=== PATIENT | female | born 1965 | race Caucasian/White ===

== ENCOUNTER → 2017-02-12 | Outpatient (CLI) | payer MEDICAID, OTHER ==
[~2017-02-12] MED LIST: NO HOME MEDS
== END | disposition home or self-care (01) ==
LOC: CFH 10:44
PROVIDERS: ATTEND Nurse Practitioner Family
DX: C50.412 Malignant neoplasm of upper-outer quadrant of left female breast (principal); K76.0 Fatty (change of) liver, not elsewhere classified
CPT/HCPCS: 76700

== ENCOUNTER → 2017-02-22 | Outpatient (CLI) | payer OTHER, MEDICAID ==
[~2017-02-22] MED LIST changes: +OMNIPAQUE 350 MG/ML, 100ML BOTTLE ONE
== END | disposition home or self-care (01) ==
LOC: RAD 10:41
PROVIDERS: ATTEND Internal Medicine Hematology & Oncology
DX: C50.412 Malignant neoplasm of upper-outer quadrant of left female breast (principal)
CPT/HCPCS: 71260; J1642; Q9967

== ENCOUNTER → 2017-03-08 | Outpatient (CLI) | payer OTHER, MEDICAID ==
[~2017-03-08] MED LIST changes: +GADOBUTROL 10 MMOL/10 ML VIAL ONE; -OMNIPAQUE 350 MG/ML, 100ML BOTTLE ONE
== END | disposition home or self-care (01) ==
LOC: CFH 11:01
PROVIDERS: ATTEND Surgery
DX: C50.412 Malignant neoplasm of upper-outer quadrant of left female breast (principal); C77.3 Secondary and unspecified malignant neoplasm of axilla and upper limb lymph nodes; R59.1 Generalized enlarged lymph nodes; Z92.21 Personal history of antineoplastic chemotherapy
CPT/HCPCS: 76641; A9585; C8908

== ENCOUNTER → 2017-03-20 | Outpatient (CLI) | payer OTHER, MEDICAID ==
[~2017-03-20] MED LIST changes: -GADOBUTROL 10 MMOL/10 ML VIAL ONE
== END | disposition home or self-care (01) ==
LOC: CFH 10:28
PROVIDERS: ATTEND Family Medicine
DX: J20.9 Acute bronchitis, unspecified (principal)
CPT/HCPCS: 71020

== ENCOUNTER → 2017-05-06 | Outpatient (CLI) | payer OTHER, MEDICAID ==
[~2017-05-06] MED LIST changes: +IBUP-1 PO
== END | disposition home or self-care (01) ==
LOC: ROC 08:14
PROVIDERS: ATTEND Radiology Radiation Oncology
DX: C50.912 Malignant neoplasm of unspecified site of left female breast (principal)
CPT/HCPCS: 99212; G0463

== ENCOUNTER → 2017-07-16 | Outpatient (CLI) | payer OTHER, MEDICAID ==
[~2017-07-16] MED LIST changes: -IBUP-1 PO; +IBUP-11 PO; +OMNIPAQUE 350 MG/ML, 100ML BOTTLE ONE
== END | disposition home or self-care (01) ==
LOC: CFH 10:17
PROVIDERS: ATTEND Internal Medicine Hematology & Oncology
DX: C50.412 Malignant neoplasm of upper-outer quadrant of left female breast (principal); Z98.890 Other specified postprocedural states
CPT/HCPCS: 71260; 74177; Q9967

== ENCOUNTER → 2017-07-22 | Outpatient (CLI) | payer OTHER, MEDICAID ==
[~2017-07-22] MED LIST changes: -OMNIPAQUE 350 MG/ML, 100ML BOTTLE ONE
== END | disposition home or self-care (01) ==
LOC: ROC 09:39
PROVIDERS: ATTEND Radiology Radiation Oncology
DX: C50.919 Malignant neoplasm of unspecified site of unspecified female breast (principal)
CPT/HCPCS: 99213; G0463

== ENCOUNTER → 2017-08-26 | Outpatient (CLI) | payer MEDICAID, OTHER | END | disposition home or self-care (01) | LOC: ROC 15:17 | PROVIDERS: ATTEND Radiology Radiation Oncology | DX: C50.411 Malignant neoplasm of upper-outer quadrant of right female breast (principal) | CPT/HCPCS: 99213; G0463 ==

== ENCOUNTER → 2017-10-14 | Outpatient (CLI) | payer OTHER, MEDICAID | END | disposition home or self-care (01) | LOC: CFH 14:16 | PROVIDERS: ATTEND Radiology Radiation Oncology | DX: Z12.31 Encounter for screening mammogram for malignant neoplasm of breast (principal); C50.412 Malignant neoplasm of upper-outer quadrant of left female breast; Z78.0 Asymptomatic menopausal state; Z85.3 Personal history of malignant neoplasm of breast | CPT/HCPCS: G0202 ==

== ENCOUNTER 2017-11-20 09:07 | Observation (INO) | payer BC, MEDICAID ==
[~2017-11-20] VITALS: Ht 157.5 cm; Wt 73.1 kg
[2017-11-20] MEDS ORDERED: AMPICILLIN/SULBACTAM 3 GM in SODIUM CHLORIDE 0.9% 100 ML IV ONE ×2 (10:00→18:00)
[2017-11-20] MEDS ORDERED: morphine SULFATE 10 MG/ML, 1ML IVPush ONE (10:00)
[2017-11-20] MEDS ORDERED: MORPHINE SULFATE 4 MG/ML, 1ML ONE (10:12)
[2017-11-20 10:22] LABS: BASOPHILS # (AUTO) 0.03 x10^3/uL (0-0.1); BASOPHILS % (AUTO) 1 % (0-1); EOSINOPHILS # (AUTO) 0.11 x10^3/uL (0-0.4); EOSINOPHILS % (AUTO) 2 % (1-7); LYMPHOCYTES # (AUTO) 1.26 x10^3/uL (1-3.4); LYMPHOCYTES % (AUTO) 22 % (22-44); MD NO; MEAN CORPUSCULAR HEMOGLOBIN 29.6 pg (27.0-34.8); MEAN CORPUSCULAR HGB CONC 32.8 g/dL (32.4-35.8); MEAN CORPUSCULAR VOLUME 90.3 fL (80-100); MEAN PLATELET VOLUME 7.1 fL (7.4-10.4); MONOCYTES # (AUTO) 0.38 x10^3/uL (0.2-0.8); MONOCYTES % (AUTO) 6 % (2-9); NEUTROPHILS # (AUTO) 4.08 x10^3/uL (1.8-6.8); NEUTROPHILS % (AUTO) 70 % (42-75); PLATELET COUNT 464 x10^3/uL (130-400); RED BLOOD COUNT 4.09 x10^6/uL (3.82-5.3); RED CELL DISTRIBUTION WIDTH 14.9 % (9.6-15.2)
[2017-11-20 10:32] LABS: ANION GAP 7 mmol/L (5-15); CALCIUM 8.5 mg/dL (8.5-10.1); CHLORIDE 103 mmol/L (98-107); CREATININE 0.66 mg/dL (0.55-1.02)
[2017-11-20] MEDS ORDERED: HYDROmorphone 2 MG/ML, 1ML ONE ×2 (12:28→18:50)
[2017-11-20] MEDS ORDERED: HYDROmorphone 1 MG/ML, 1ML IV ONE (12:30)
[2017-11-20] MEDS ORDERED: D5%-0.45NACL+KCL 20MEQ 1,000 ML IV ONE (13:22)
[2017-11-20] MEDS ORDERED: ONDANSETRON 2MG/ML, 2ML IVPush PRN ×3 (13:30→18:00)
[2017-11-20] MEDS ORDERED: HYDROmorphone 1 MG/ML, 1ML IVPush PRN (13:30)
[2017-11-20 15:03] VITALS: BP 98/62
[2017-11-20] MEDS ORDERED: HYDROmorphone 2 MG/ML, 1ML IVPush PRN ×3 (16:00→20:00)
[2017-11-20] MEDS ORDERED: D5%-0.45NACL+KCL 20MEQ 1,000 ML IV SCH (16:30)
[2017-11-20] MEDS ORDERED: FENTANYL PF 100 MCG/2ML ONE ×2 (17:24→18:24)
[2017-11-20] MEDS ORDERED: MIDAZOLAM 1 MG/ML, 2ML ONE (17:24)
[2017-11-20] MEDS ORDERED: BACITRACIN 50,000 UNIT ONE (17:32)
[2017-11-20] MEDS ORDERED: DEXAMETHASONE 4 MG/ML, 1ML ONE (17:33)
[2017-11-20] MEDS ORDERED: CEFAZOLIN 1,000 MG ONE (17:33)
[2017-11-20] MEDS ORDERED: ONDANSETRON 2MG/ML, 2ML ONE (17:33)
[2017-11-20] MEDS ORDERED: PROPOFOL 10 MG/ML, 20ML ONE (17:33)
[2017-11-20] MEDS ORDERED: KETOROLAC 30 MG/1 ML ONE (17:34)
[2017-11-20] MEDS ORDERED: MEPERIDINE/PF 25MG/0.5ML IVPush PRN (18:00)
[2017-11-20] MEDS ORDERED: ACETAMINOPHEN 325 MG TABLET PO PRN (18:00)
[2017-11-20] MEDS ORDERED: DIAZEPAM 5 MG/ML, 2ML IVPush PRN (18:00)
[2017-11-20] MEDS ORDERED: PROMETHAZINE 25 MG/ML, 1ML IV PRN (18:00)
[2017-11-20] MEDS ORDERED: OXYcodone 5 MG/5 ML ORAL.SOL UDC PO PRN (18:00)
[2017-11-20] MEDS ORDERED: ALBUTEROL SULFATE 2.5 MG/3 ML NPPB PRN (18:00)
[2017-11-20] MEDS ORDERED: MIDAZOLAM 1 MG/ML, 2ML IV PRN (18:00)
[2017-11-20] MEDS ORDERED: EPHEDRINE 50 MG/ML, 1ML IVPush PRN (18:00)
[2017-11-20] MEDS ORDERED: HYDROcodone/APAP 7.5-325MG/15ML UDC PO PRN (18:00)
[2017-11-20] MEDS ORDERED: METOPROLOL 1 MG/ML, 5ML IV PRN (18:00)
[2017-11-20] MEDS ORDERED: LABETALOL 5MG/ML, 20ML IV PRN (18:00)
[2017-11-20] MEDS ORDERED: hydrALAzine 20 MG/ML, 1ML IV PRN (18:00)
[2017-11-20] MEDS ORDERED: OXYcodone 5 MG/5 ML ORAL.SOL UDC ONE (18:24)
[2017-11-20] MEDS ORDERED: ACETAMINOPHEN 650 MG/20.3 ML UDC ONE (18:24)
[2017-11-20] MEDS: FENTANYL PF 100 MCG/2ML IV PRN ×2 (18:26→18:36)
[2017-11-20] MEDS: HYDROmorphone 1 MG/ML, 1ML IV PRN ×2 (18:53→19:01)
[2017-11-20 19:49] VITALS: BP 95/56
== END 2017-11-20 22:47 | disposition home or self-care (01) ==
LOC: ED 10:58 → EDIP 13:11 → 3NW 14:34
PROVIDERS: ADMIT Plastic Surgery; ATTEND Plastic Surgery
DX: T85.79XA Infection and inflammatory reaction due to other internal prosthetic devices, implants and grafts, initial encounter (principal); Y84.2 Radiological procedure and radiotherapy as the cause of abnormal reaction of the patient, or of later complication, without mention of misadventure at the time of the procedure; N61.0 Mastitis without abscess; Z85.3 Personal history of malignant neoplasm of breast; Z92.3 Personal history of irradiation; Z90.12 Acquired absence of left breast and nipple
CPT/HCPCS: 11043; 11046; 11971; 36415; 76642; 80048; 84703; 85025; 87070; 87075; 87077; 87186; 87205; 96365; 96375; 99285; G0378; J0295; J1100; J1170; J1885; J2250; J2270; J2405; J2704; J3010; J0690

== ENCOUNTER 2018-09-30 13:56 | Inpatient (IN) | payer BC ==
[~2018-09-30] VITALS: Ht 157.5 cm; Wt 78.0 kg
[2018-09-30 14:58] LABS: ALANINE AMINOTRANSFERASE 40 U/L (12-78); ANION GAP 9 mmol/L (5-15); CALCIUM 8.6 mg/dL (8.5-10.1); CHLORIDE 108 mmol/L (98-107); CREATININE 0.59 mg/dL (0.55-1.02)
[2018-09-30 15:00] LABS: ALKALINE PHOSPHATASE 141 U/L (45-117); BILIRUBIN,TOTAL 0.5 mg/dL (0.2-1.0); TOTAL PROTEIN 7.8 g/dL (6.4-8.2)
[2018-09-30] MEDS ORDERED: SODIUM CHLORIDE FLUSH 10ML SYR IVF ONE (15:00)
[2018-09-30 15:03] LABS: RED BLOOD COUNT 4.48 x10^6/uL (3.82-5.3)
[2018-09-30 15:04] LABS: MEAN CORPUSCULAR HGB CONC 34.4 g/dL (32.4-35.8); MEAN PLATELET VOLUME 7.3 fL (7.4-10.4); PLATELET COUNT 299 x10^3/uL (130-400)
[2018-09-30 15:05] LABS: BASOPHILS % (AUTO) 1 % (0-1); LYMPHOCYTES # (AUTO) 2.15 x10^3/uL (1-3.4); LYMPHOCYTES % (AUTO) 29 % (22-44); MONOCYTES % (AUTO) 4 % (2-9); NEUTROPHILS # (AUTO) 4.67 x10^3/uL (1.8-6.8); NEUTROPHILS % (AUTO) 64 % (42-75)
[2018-09-30 15:06] LABS: BASOPHILS # (AUTO) 0.04 x10^3/uL (0-0.1); EOSINOPHILS # (AUTO) 0.13 x10^3/uL (0-0.4); EOSINOPHILS % (AUTO) 2 % (1-7); MD NO; MONOCYTES # (AUTO) 0.32 x10^3/uL (0.2-0.8)
[2018-09-30] MEDS ORDERED: GADOBUTROL 10 MMOL/10 ML PFS ONE (15:08)
[2018-09-30] MEDS ORDERED: DEXAMETHASONE 4 MG/ML, 1ML IVPush ONE (16:30)
[2018-09-30] MEDS ORDERED: DEXAMETHASONE 4 MG/ML, 1ML ONE (16:32)
[2018-09-30] MEDS ORDERED: ONDANSETRON ODT 4 MG PO PRN (17:00)
[2018-09-30] MEDS ORDERED: IBUPROFEN 600 MG TABLET PO PRN (17:00)
[2018-09-30 17:05] VITALS: BP 150/86
[2018-09-30] MEDS: ACETAMINOPHEN 325 MG TABLET PO PRN (17:29)
[2018-09-30 20:00] VITALS: BP 120/68
[2018-09-30] MEDS: SODIUM CHLORIDE FLUSH 10ML SYR IVF SCH (21:30)
[2018-10-01 02:29] VITALS: BP 110/72
[2018-10-01 04:34] LABS: BASOPHILS # (AUTO) 0.01 x10^3/uL (0-0.1); BASOPHILS % (AUTO) 0 % (0-1); EOSINOPHILS % (AUTO) 0 % (1-7); LYMPHOCYTES % (AUTO) 13 % (22-44); MD NO; MEAN CORPUSCULAR HEMOGLOBIN 31.9 pg (27.0-34.8); MEAN CORPUSCULAR HGB CONC 34.2 g/dL (32.4-35.8); MEAN CORPUSCULAR VOLUME 93.1 fL (80-100); MEAN PLATELET VOLUME 7.6 fL (7.4-10.4); MONOCYTES # (AUTO) 0.09 x10^3/uL (0.2-0.8); MONOCYTES % (AUTO) 1 % (2-9); NEUTROPHILS % (AUTO) 86 % (42-75); PLATELET COUNT 322 x10^3/uL (130-400); RED CELL DISTRIBUTION WIDTH 13.2 % (9.6-15.2)
[2018-10-01 04:49] LABS: ALANINE AMINOTRANSFERASE 40 U/L (12-78); ALBUMIN 3.8 g/dL (3.4-5.0); ANION GAP 9 mmol/L (5-15); CHLORIDE 109 mmol/L (98-107)
[2018-10-01 04:51] LABS: ALKALINE PHOSPHATASE 139 U/L (45-117); BILIRUBIN,TOTAL 0.4 mg/dL (0.2-1.0); CREATININE 0.64 mg/dL (0.55-1.02); TOTAL PROTEIN 7.9 g/dL (6.4-8.2)
[2018-10-01] MEDS ORDERED: DEXAMETHASONE 4 MG TABLET PO SCH (06:00)
[2018-10-01 06:59] VITALS: BP 128/81
[2018-10-01] MEDS: DEXAMETHASONE 1 MG TABLET PO SCH ×2 (07:39→17:07)
[2018-10-01] MEDS: FAMOTIDINE 20 MG TABLET PO SCH ×2 (07:39→19:36)
[2018-10-01] MEDS: SODIUM CHLORIDE FLUSH 10ML SYR IVF SCH ×2 (07:40→19:36)
[2018-10-01] MEDS ORDERED: GADOBUTROL 10 MMOL/10 ML PFS ONE (10:30)
[2018-10-01] MEDS: ACETAMINOPHEN 325 MG TABLET PO PRN (11:30)
[2018-10-01 14:10] VITALS: BP 110/63
[2018-10-01 20:28] VITALS: BP 121/75
[2018-10-02 03:42] VITALS: BP 121/74
[2018-10-02] MEDS: FAMOTIDINE 20 MG TABLET PO SCH ×2 (07:16→21:12)
[2018-10-02] MEDS: DEXAMETHASONE 1 MG TABLET PO SCH ×2 (07:16→16:32)
[2018-10-02] MEDS: SODIUM CHLORIDE FLUSH 10ML SYR IVF SCH ×3 (07:16→21:12)
[2018-10-02 07:30] VITALS: BP_SYST 112; BP_SYST 12; BP_DIAS 65
[2018-10-02 11:01] LABS: AMPHETAMINE SCREEN, URINE Negative (Negative); BARBITURATE SCREEN, URINE Negative (Negative); BENZODIAZEPINE SCREEN, URINE Negative (Negative); CANNABINOID SCREEN, URINE Negative (Negative); COCAINE SCREEN, URINE Negative (Negative); METHADONE SCREEN, URINE Negative (Negative); OPIATE SCREEN, URINE Negative (Negative)
[2018-10-02 11:48] LABS: INTERNATIONAL NORMALIZED RATIO 1.06 (0.93-1.1); PROTHROMBIN TIME 11.2 Seconds (9.6-11.5)
[2018-10-02 12:56] VITALS: BP 118/74
[2018-10-02] MEDS ORDERED: DEXTROSE 4 GM TAB.CHEW PO PRN (17:30)
[2018-10-02] MEDS ORDERED: SODIUM CHLORIDE 0.9% 1,000 ML IV SCH (17:30)
[2018-10-02] MEDS ORDERED: GLUCAGON 1 MG IM PRN (17:30)
[2018-10-02] MEDS ORDERED: DEXTROSE 50%, 50ML SYRINGE IVPush PRN (17:30)
[2018-10-02] MEDS: SODIUM CHLORIDE 0.9% 1,000 ML IV SCH (17:38)
[2018-10-02] MEDS: INSULIN LISPRO 100 UNITS/ML, PEN SQ-INSULIN SCH (21:00)
[2018-10-02 21:55] VITALS: BP 120/73
[2018-10-03] MEDS: SODIUM CHLORIDE 0.9% 1,000 ML IV SCH (00:01)
[2018-10-03 01:27] VITALS: BP 106/61
[2018-10-03] MEDS: INSULIN LISPRO 100 UNITS/ML, PEN SQ-INSULIN SCH ×3 (02:58→15:00)
[2018-10-03] MEDS ORDERED: MANNITOL PMX 20% 0 ML ONE (05:52)
[2018-10-03] MEDS ORDERED: FUROSEMIDE 20 MG/2 ML ONE (05:53)
[2018-10-03 05:54] LABS: CHLORIDE 111 mmol/L (98-107)
[2018-10-03 06:01] LABS: ALANINE AMINOTRANSFERASE 29 U/L (12-78); ALBUMIN 3.6 g/dL (3.4-5.0); ALKALINE PHOSPHATASE 121 U/L (45-117); ANION GAP 9 mmol/L (5-15); BILIRUBIN,TOTAL 0.5 mg/dL (0.2-1.0); CALCIUM 8.8 mg/dL (8.5-10.1); CREATININE 0.52 mg/dL (0.55-1.02); TOTAL PROTEIN 7.5 g/dL (6.4-8.2)
[2018-10-03] MEDS ORDERED: FENTANYL PF 250 MCG/5ML ONE ×2 (06:25→09:21)
[2018-10-03] MEDS ORDERED: CEFAZOLIN 1,000 MG ONE (06:34)
[2018-10-03] MEDS ORDERED: DEXAMETHASONE 4 MG/ML, 1ML ONE (06:34)
[2018-10-03] MEDS ORDERED: NEOSTIGMINE 1 MG/ML, 10ML ONE (06:34)
[2018-10-03] MEDS ORDERED: GLYCOPYRROLATE 0.2MG/1ML, 5ML ONE (06:34)
[2018-10-03] MEDS ORDERED: PROPOFOL 10 MG/ML, 20ML ONE (06:34)
[2018-10-03] MEDS ORDERED: ONDANSETRON 2MG/ML, 2ML ONE (06:34)
[2018-10-03] MEDS ORDERED: ROCURONIUM 10MG/ML,5ML ONE (06:34)
[2018-10-03] MEDS ORDERED: PROPOFOL 50 ML ONE ×2 (06:38→08:48)
[2018-10-03] MEDS ORDERED: GADOBUTROL 10 MMOL/10 ML PFS ONE (07:09)
[2018-10-03] MEDS ORDERED: THROMBIN 20,000 UNIT VIAL TP ONE (07:19)
[2018-10-03] MEDS ORDERED: BUPIVACAINE/PF-EPI 0.5% 1:200K ONE (07:19)
[2018-10-03] MEDS ORDERED: BACITRACIN 50,000 UNIT ONE ×2 (07:19→07:20)
[2018-10-03] MEDS: DEXAMETHASONE 1 MG TABLET PO SCH (07:30)
[2018-10-03] MEDS ORDERED: MORPHINE SULFATE 4 MG/ML, 1ML IVPush PRN (08:00)
[2018-10-03] MEDS ORDERED: HYDROmorphone 2 MG/ML, 1ML IVPush PRN (08:00)
[2018-10-03] MEDS ORDERED: PROMETHAZINE 25 MG/ML, 1ML IV PRN (08:00)
[2018-10-03] MEDS ORDERED: LABETALOL 5MG/ML, 20ML IV PRN (08:00)
[2018-10-03] MEDS ORDERED: ONDANSETRON 2MG/ML, 2ML IV PRN (08:00)
[2018-10-03] MEDS ORDERED: OXYcodone 5 MG/5 ML ORAL.SOL UDC PO PRN (08:00)
[2018-10-03] MEDS ORDERED: hydrALAzine 20 MG/ML, 1ML IV PRN ×2 (08:00→13:00)
[2018-10-03] MEDS ORDERED: PROMETHAZINE 25 MG/ML, 1ML IM PRN ×2 (08:00)
[2018-10-03] MEDS ORDERED: PROMETHAZINE 12.5 MG SUPP PR PRN (08:00)
[2018-10-03] MEDS ORDERED: ONDANSETRON ODT 8 MG PO PRN (08:00)
[2018-10-03] MEDS ORDERED: PROMETHAZINE 25 MG SUPP PR PRN (08:00)
[2018-10-03] MEDS ORDERED: MEPERIDINE/PF 25MG/0.5ML IVPush PRN (08:00)
[2018-10-03] MEDS ORDERED: BUPIVACAINE/PF-EPI 0.5% 1:200K INFIL ONE (08:45)
[2018-10-03] MEDS: FAMOTIDINE 20 MG TABLET PO SCH ×2 (09:00→21:29)
[2018-10-03] MEDS: SODIUM CHLORIDE FLUSH 10ML SYR IVF SCH ×2 (09:00)
[2018-10-03] MEDS ORDERED: FENTANYL PF 100 MCG/2ML ONE (10:56)
[2018-10-03] MEDS ORDERED: MORPHINE SULFATE 4 MG/ML, 1ML ONE (10:56)
[2018-10-03] MEDS: FENTANYL PF 100 MCG/2ML IV PRN ×2 (11:00→11:20)
[2018-10-03] MEDS ORDERED: OXYcodone 5 MG/5 ML ORAL.SOL UDC ONE (11:01)
[2018-10-03] MEDS ORDERED: CYCLOBENZAPRINE 10 MG TABLET PO PRN (13:30)
[2018-10-03] MEDS: NS + 20MEQ KCL 1,000 ML IV SCH (13:32)
[2018-10-03] MEDS: ACETAMINOPHEN 325 MG TABLET PO PRN (15:01)
[2018-10-03] MEDS: METHOCARBAMOL 500 MG TABLET PO PRN (15:01)
[2018-10-03] MEDS ORDERED: CEFAZOLIN PMX 1GM/50ML 50 ML IVPB SCH (16:00)
[2018-10-03] MEDS: CEFAZOLIN 1,000 MG in SODIUM CHLORIDE 0.9% 50 ML IVPB SCH (16:11)
[2018-10-03] MEDS: ONDANSETRON 2MG/ML, 2ML IV PRN (19:05)
[2018-10-04] MEDS: CEFAZOLIN 1,000 MG in SODIUM CHLORIDE 0.9% 50 ML IVPB SCH (00:07)
[2018-10-04] MEDS: NS + 20MEQ KCL 1,000 ML IV SCH ×2 (02:35→16:16)
[2018-10-04 04:32] VITALS: BP 135/73
[2018-10-04] MEDS: METHOCARBAMOL 500 MG TABLET PO PRN ×2 (04:47→16:16)
[2018-10-04] MEDS: ONDANSETRON 2MG/ML, 2ML IV PRN ×2 (07:49→16:33)
[2018-10-04 08:19] LABS: BASOPHILS # (AUTO) 0.04 x10^3/uL (0-0.1); BASOPHILS % (AUTO) 0 % (0-1); EOSINOPHILS # (AUTO) 0.02 x10^3/uL (0-0.4); EOSINOPHILS % (AUTO) 0 % (1-7); LYMPHOCYTES # (AUTO) 2.43 x10^3/uL (1-3.4); LYMPHOCYTES % (AUTO) 19 % (22-44); MD NO; MEAN CORPUSCULAR HEMOGLOBIN 31.9 pg (27.0-34.8); MEAN CORPUSCULAR HGB CONC 33.7 g/dL (32.4-35.8); MEAN CORPUSCULAR VOLUME 94.7 fL (80-100); MEAN PLATELET VOLUME 7.2 fL (7.4-10.4); MONOCYTES # (AUTO) 0.68 x10^3/uL (0.2-0.8); MONOCYTES % (AUTO) 5 % (2-9); NEUTROPHILS # (AUTO) 9.75 x10^3/uL (1.8-6.8); NEUTROPHILS % (AUTO) 75 % (42-75); PLATELET COUNT 264 x10^3/uL (130-400); RED CELL DISTRIBUTION WIDTH 13.2 % (9.6-15.2)
[2018-10-04 08:24] LABS: ANION GAP 7 mmol/L (5-15); CALCIUM 7.8 mg/dL (8.5-10.1); CHLORIDE 105 mmol/L (98-107); CREATININE 0.46 mg/dL (0.55-1.02)
[2018-10-04] MEDS: SENNA/DOCUSATE TABLET PO SCH (09:18)
[2018-10-04] MEDS: FAMOTIDINE 20 MG TABLET PO SCH ×2 (09:18→21:17)
[2018-10-04] MEDS: DEXAMETHASONE 4 MG/ML, 1ML IVPush SCH ×3 (11:21→23:55)
[2018-10-04 19:54] VITALS: BP 123/66
[2018-10-05] MEDS: ONDANSETRON 2MG/ML, 2ML IV PRN ×2 (00:08→21:10)
[2018-10-05 02:08] VITALS: BP 131/72
[2018-10-05] MEDS: NS + 20MEQ KCL 1,000 ML IV SCH ×2 (05:01→23:05)
[2018-10-05] MEDS: DEXAMETHASONE 4 MG/ML, 1ML IVPush SCH (05:10)
[2018-10-05 07:05] VITALS: BP 127/68
[2018-10-05] MEDS: SENNA/DOCUSATE TABLET PO SCH (08:44)
[2018-10-05] MEDS: FAMOTIDINE 20 MG TABLET PO SCH ×2 (08:44→23:05)
[2018-10-05 15:12] VITALS: BP 131/71
[2018-10-05] MEDS: DEXAMETHASONE 4 MG TABLET PO SCH ×2 (16:08→23:05)
[2018-10-05] MEDS: MAGNESIUM HYDROXIDE 8%, 30ML UDC PO PRN (18:06)
[2018-10-06 02:53] VITALS: BP 129/68
[2018-10-06 05:23] LABS: BASOPHILS # (AUTO) 0.02 x10^3/uL (0-0.1); BASOPHILS % (AUTO) 0 % (0-1); EOSINOPHILS % (AUTO) 0 % (1-7); LYMPHOCYTES # (AUTO) 1.49 x10^3/uL (1-3.4); LYMPHOCYTES % (AUTO) 12 % (22-44); MD NO; MEAN CORPUSCULAR HEMOGLOBIN 31.5 pg (27.0-34.8); MEAN CORPUSCULAR HGB CONC 33.5 g/dL (32.4-35.8); MEAN CORPUSCULAR VOLUME 94.1 fL (80-100); MEAN PLATELET VOLUME 7.4 fL (7.4-10.4); MONOCYTES # (AUTO) 0.75 x10^3/uL (0.2-0.8); MONOCYTES % (AUTO) 6 % (2-9); NEUTROPHILS # (AUTO) 9.98 x10^3/uL (1.8-6.8); NEUTROPHILS % (AUTO) 82 % (42-75); PLATELET COUNT 299 x10^3/uL (130-400); RED BLOOD COUNT 4.53 x10^6/uL (3.82-5.3); RED CELL DISTRIBUTION WIDTH 12.8 % (9.6-15.2)
[2018-10-06 05:41] LABS: CHLORIDE 99 mmol/L (98-107)
[2018-10-06 05:48] LABS: ANION GAP 8 mmol/L (5-15); CALCIUM 8.8 mg/dL (8.5-10.1); CREATININE 0.46 mg/dL (0.55-1.02)
[2018-10-06 06:57] VITALS: BP 150/80
[2018-10-06] MEDS ORDERED: morphine SULFATE 10 MG/ML, 1ML IVPush PRN (08:30)
[2018-10-06] MEDS: FAMOTIDINE 20 MG TABLET PO SCH ×2 (10:21→21:52)
[2018-10-06] MEDS: SENNA/DOCUSATE TABLET PO SCH (10:21)
[2018-10-06] MEDS: DEXAMETHASONE 4 MG TABLET PO SCH ×3 (10:21→21:52)
[2018-10-06] MEDS: MAGNESIUM HYDROXIDE 8%, 30ML UDC PO PRN (10:21)
[2018-10-06] MEDS: ONDANSETRON 2MG/ML, 2ML IV PRN (12:54)
[2018-10-06 13:03] VITALS: BP 152/86
[2018-10-06] MEDS: NS + 20MEQ KCL 1,000 ML IV SCH (16:54)
[2018-10-06] MEDS: OXYcodone/APAP 5/325MG TABLET PO PRN ×2 (18:43→21:56)
[2018-10-06 19:22] VITALS: BP 147/82
[2018-10-07 03:04] VITALS: BP 141/77
[2018-10-07] MEDS: NS + 20MEQ KCL 1,000 ML IV SCH ×2 (06:05→20:54)
[2018-10-07 07:27] VITALS: BP 139/73
[2018-10-07] MEDS: SENNA/DOCUSATE TABLET PO SCH (08:27)
[2018-10-07] MEDS: DEXAMETHASONE 4 MG TABLET PO SCH ×3 (08:27→20:54)
[2018-10-07] MEDS: FAMOTIDINE 20 MG TABLET PO SCH ×2 (08:27→20:53)
[2018-10-07] MEDS: OXYcodone/APAP 5/325MG TABLET PO PRN ×4 (11:04→20:53)
[2018-10-07 13:43] VITALS: BP 133/75
[2018-10-07 19:42] VITALS: BP 125/71
[2018-10-08 02:46] VITALS: BP 133/76
[2018-10-08] MEDS: OXYcodone/APAP 5/325MG TABLET PO PRN ×3 (04:28→15:16)
[2018-10-08] MEDS ORDERED: DOCUSATE 100 MG CAPSULE PO PRN (08:30)
[2018-10-08 08:54] LABS: BASOPHILS # (AUTO) 0.01 x10^3/uL (0-0.1); BASOPHILS % (AUTO) 0 % (0-1); EOSINOPHILS % (AUTO) 0 % (1-7); LYMPHOCYTES # (AUTO) 1.46 x10^3/uL (1-3.4); LYMPHOCYTES % (AUTO) 12 % (22-44); MD NO; MEAN CORPUSCULAR HEMOGLOBIN 31.8 pg (27.0-34.8); MEAN CORPUSCULAR HGB CONC 34.1 g/dL (32.4-35.8); MEAN CORPUSCULAR VOLUME 93.1 fL (80-100); MEAN PLATELET VOLUME 6.9 fL (7.4-10.4); MONOCYTES % (AUTO) 1 % (2-9); NEUTROPHILS # (AUTO) 10.24 x10^3/uL (1.8-6.8); NEUTROPHILS % (AUTO) 87 % (42-75); PLATELET COUNT 350 x10^3/uL (130-400); RED CELL DISTRIBUTION WIDTH 13.1 % (9.6-15.2)
[2018-10-08] MEDS: SENNA/DOCUSATE TABLET PO SCH (09:00)
[2018-10-08] MEDS ORDERED: DEXAMETHASONE 4 MG TABLET PO SCH ×2 (09:00→16:00)
[2018-10-08 09:06] LABS: ANION GAP 10 mmol/L (5-15); CALCIUM 8.8 mg/dL (8.5-10.1); CHLORIDE 102 mmol/L (98-107)
[2018-10-08] MEDS: FAMOTIDINE 20 MG TABLET PO SCH (10:13)
[2018-10-08] MEDS: NS + 20MEQ KCL 1,000 ML IV SCH (10:13)
[2018-10-08 13:29] VITALS: BP 140/78
[2018-10-08] MEDS ORDERED: DEXA4TAB66 PO (14:41)
[2018-10-08] MEDS ORDERED: ONDA4TAB13 PO (14:41)
[2018-10-08] MEDS ORDERED: OXYC1TAB7 PO (14:41)
== END 2018-10-08 17:24 | disposition home health service (06) | DRG 25 ==
LOC: ED 15:53 → EDIP 16:11 → 3NW 17:01 → CCU 10-03 12:03 → 3NW 10-04 13:50
PROVIDERS: ADMIT Internal Medicine; ATTEND Internal Medicine
PROC: 00U20KZ Supplement Dura Mater with Nonautologous Tissue Substitute, Open Approach (ICD-10-PCS; 2018-10-03)
PROC: 0NR70JZ Replacement of Occipital Bone with Synthetic Substitute, Open Approach (ICD-10-PCS; 2018-10-03)
PROC: 00B00ZZ Excision of Brain, Open Approach (ICD-10-PCS; principal; 2018-10-03 08:00)
DX: C79.31 Secondary malignant neoplasm of brain (principal); G93.5 Compression of brain; G93.6 Cerebral edema; R73.9 Hyperglycemia, unspecified; E66.9 Obesity, unspecified; T38.0X5A Adverse effect of glucocorticoids and synthetic analogues, initial encounter; Z92.21 Personal history of antineoplastic chemotherapy; Z85.3 Personal history of malignant neoplasm of breast; Z90.12 Acquired absence of left breast and nipple; Z92.3 Personal history of irradiation
CPT/HCPCS: 36415; 99285; J3490; 70450; 70553; 71250; 72156; 72157; 72158; 74176; 78306; 80048; 80053; 80307; 82962; 85025; 85347; 85384; 85576; 85610; 87081; 88307; 88331; 88342; 88360; 93005; 96374; A9585; C1713; G0378; J0690; J1100; J2270; J2405; J2704; J2710; J3010; J3480; Q0162; A4648; A9503; C1781; C9898; J1815; J1940; J7030

== ENCOUNTER → 2018-10-20 | Outpatient (CLI) | payer BC ==
[~2018-10-20] MED LIST changes: +DEXA4TAB66 PO; +ONDA4TAB13 PO; +OXYC1TAB7 PO
== END | disposition home or self-care (01) ==
LOC: ROC 07:14
PROVIDERS: ATTEND Radiology Radiation Oncology
DX: Z02.9 Encounter for administrative examinations, unspecified (principal)

== ENCOUNTER → 2018-10-30 | Outpatient (CLI) | payer BC, MEDICAID | END | disposition home or self-care (01) | LOC: PETCFH 08:20 | PROVIDERS: ATTEND Internal Medicine Hematology & Oncology | DX: C50.412 Malignant neoplasm of upper-outer quadrant of left female breast (principal); C78.7 Secondary malignant neoplasm of liver and intrahepatic bile duct; M89.9 Disorder of bone, unspecified | CPT/HCPCS: 78815; A9552 ==

== ENCOUNTER 2018-11-03 11:32 | Inpatient (IN) | payer BC ==
[~2018-11-03] VITALS: Ht 157.5 cm; Wt 76.5 kg
--- NOTE | 2018-11-03 11:52 | NUR ---
PT IN BED, LIGHTS OFF AND FAMILY AT BEDSIDE. AWAITING DR LAND
[2018-11-03] MEDS ORDERED: METOCLOPRAMIDE 5 MG/ML, 2ML IVPush ONE (12:00)
[2018-11-03] MEDS ORDERED: DIAZEPAM 5 MG/ML, 2ML IVPush ONE (12:00)
[2018-11-03] MEDS ORDERED: SODIUM CHLORIDE FLUSH 10ML SYR IVF ONE (12:00)
[2018-11-03 12:18] LABS: BASOPHILS # (AUTO) 0.01 x10^3/uL (0-0.1); BASOPHILS % (AUTO) 0 % (0-1); EOSINOPHILS % (AUTO) 0 % (1-7); LYMPHOCYTES # (AUTO) 1.28 x10^3/uL (1-3.4); LYMPHOCYTES % (AUTO) 12 % (22-44); MD NO; MEAN CORPUSCULAR HEMOGLOBIN 31.6 pg (27.0-34.8); MEAN CORPUSCULAR HGB CONC 33.5 g/dL (32.4-35.8); MEAN CORPUSCULAR VOLUME 94.3 fL (80-100); MEAN PLATELET VOLUME 6.2 fL (7.4-10.4); MONOCYTES # (AUTO) 0.11 x10^3/uL (0.2-0.8); MONOCYTES % (AUTO) 1 % (2-9); NEUTROPHILS # (AUTO) 9.27 x10^3/uL (1.8-6.8); NEUTROPHILS % (AUTO) 87 % (42-75); PLATELET COUNT 276 x10^3/uL (130-400); RED BLOOD COUNT 4.47 x10^6/uL (3.82-5.3); RED CELL DISTRIBUTION WIDTH 14.4 % (9.6-15.2)
[2018-11-03] MEDS ORDERED: METOCLOPRAMIDE 5 MG/ML, 2ML ONE (12:29)
[2018-11-03 12:30] LABS: ALBUMIN 3.2 g/dL (3.4-5.0); ANION GAP 10 mmol/L (5-15); CALCIUM 8.2 mg/dL (8.5-10.1); CHLORIDE 105 mmol/L (98-107); CREATININE 0.64 mg/dL (0.55-1.02)
--- NOTE | 2018-11-03 12:34 | NUR ---
PT MEDICATED WITH REGLAN PER ORDER. AWAITING VALIUM FROM PHARMACY. PT TO CT NOW
--- NOTE | 2018-11-03 13:13 | NUR ---
PT RESTING IN BED. APPEARS MORE RELAXED
[2018-11-03] MEDS ORDERED: POLYETHYLENE GLYCOL 17 GM PACKET PO PRN (15:00)
[2018-11-03] MEDS ORDERED: LIDODERM 5% PATCH TD PRN (15:00)
[2018-11-03] MEDS ORDERED: HYDROcodone/APAP 5/325 TABLET PO PRN (15:00)
[2018-11-03] MEDS ORDERED: BISACODYL 10 MG SUPP PR PRN (15:00)
[2018-11-03] MEDS ORDERED: hydrALAzine 20 MG/ML, 1ML IVPush PRN (15:00)
[2018-11-03] MEDS ORDERED: ZOLPIDEM 5MG TABLET PO PRN (15:00)
[2018-11-03] MEDS ORDERED: ENOXAPARIN 40 MG/0.4 ML SQ SCH (15:00)
[2018-11-03] MEDS ORDERED: ACETAMINOPHEN 325 MG TABLET PO PRN (15:00)
[2018-11-03] MEDS ORDERED: MECLIZINE 12.5 MG TABLET PO PRN (15:00)
[2018-11-03] MEDS ORDERED: ONDANSETRON ODT 4 MG PO PRN (15:00)
[2018-11-03 15:12] VITALS: BP 128/62
[2018-11-03 15:28] LABS: FREE T4 (FREE THYROXINE) 0.73 ng/dL (0.76-1.46); THYROID STIMULATING HORMONE 0.626 mIU/L (0.358-3.740)
[2018-11-03] MEDS: DEXAMETHASONE 4 MG/ML, 5ML IVPush SCH ×2 (15:31→21:00)
[2018-11-03] MEDS: ONDANSETRON 2MG/ML, 2ML IVPush PRN (15:32)
[2018-11-03] MEDS: morphine SULFATE 10 MG/ML, 1ML IVPush PRN (15:32)
[2018-11-03 19:42] VITALS: BP 95/59
[2018-11-03] MEDS ORDERED: DEXAMETHASONE 4 MG/ML, 1ML ONE (21:50)
[2018-11-04 00:45] VITALS: BP 108/67
[2018-11-04] MEDS: DEXAMETHASONE 4 MG/ML, 5ML IVPush SCH ×2 (03:00→09:00)
[2018-11-04] MEDS ORDERED: DEXAMETHASONE 4 MG/ML, 1ML ONE ×2 (03:32→09:47)
[2018-11-04 04:48] LABS: BASOPHILS # (AUTO) 0.02 x10^3/uL (0-0.1); BASOPHILS % (AUTO) 0 % (0-1); EOSINOPHILS % (AUTO) 0 % (1-7); LYMPHOCYTES # (AUTO) 0.73 x10^3/uL (1-3.4); LYMPHOCYTES % (AUTO) 7 % (22-44); MD NO; MEAN CORPUSCULAR HEMOGLOBIN 32.7 pg (27.0-34.8); MEAN CORPUSCULAR HGB CONC 34.4 g/dL (32.4-35.8); MEAN CORPUSCULAR VOLUME 95.1 fL (80-100); MEAN PLATELET VOLUME 6.4 fL (7.4-10.4); MONOCYTES # (AUTO) 0.07 x10^3/uL (0.2-0.8); MONOCYTES % (AUTO) 1 % (2-9); NEUTROPHILS # (AUTO) 9.47 x10^3/uL (1.8-6.8); NEUTROPHILS % (AUTO) 92 % (42-75); PLATELET COUNT 243 x10^3/uL (130-400); RED BLOOD COUNT 4.45 x10^6/uL (3.82-5.3); RED CELL DISTRIBUTION WIDTH 14.9 % (9.6-15.2)
[2018-11-04 04:55] LABS: ANION GAP 11 mmol/L (5-15); CALCIUM 8.5 mg/dL (8.5-10.1); CHLORIDE 101 mmol/L (98-107); CREATININE 0.78 mg/dL (0.55-1.02)
[2018-11-04] MEDS ORDERED: PANTOPROZOLE 40MG TABLET PO SCH (07:30)
[2018-11-04] MEDS ORDERED: SENNA/DOCUSATE TABLET PO SCH (09:00)
[2018-11-04 09:17] VITALS: BP 91/54
[2018-11-04] MEDS: ONDANSETRON 2MG/ML, 2ML IVPush PRN (09:57)
[2018-11-04] MEDS ORDERED: ONDA4TAB13 PO (11:41)
[2018-11-04] MEDS ORDERED: DEXA4TAB66 PO (11:41)
[2018-11-04] MEDS ORDERED: ACET325T14 PO (11:41)
[2018-11-04] MEDS ORDERED: PANT40TA5 PO (11:41)
[2018-11-04] MEDS ORDERED: MECL12.52 PO (11:41)
[2018-11-04 12:41] VITALS: BP 114/69
[2018-11-04] MEDS: morphine SULFATE 10 MG/ML, 1ML IVPush PRN (13:00)
== END 2018-11-04 13:20 | disposition home or self-care (01) | DRG 103 ==
LOC: ED 12:05 → EDIP 13:24 → 3NW 14:28 → DCLOUNGE 11-04 13:11
PROVIDERS: ADMIT Hospitalist; ATTEND Hospitalist
DX: G44.209 Tension-type headache, unspecified, not intractable (principal); C79.31 Secondary malignant neoplasm of brain; T66.XXXA Radiation sickness, unspecified, initial encounter; G44.40 Drug-induced headache, not elsewhere classified, not intractable; C50.919 Malignant neoplasm of unspecified site of unspecified female breast; K59.00 Constipation, unspecified; Z90.12 Acquired absence of left breast and nipple; Z92.21 Personal history of antineoplastic chemotherapy; Z92.3 Personal history of irradiation; Y84.2 Radiological procedure and radiotherapy as the cause of abnormal reaction of the patient, or of later complication, without mention of misadventure at the time of the procedure; Y92.89 Other specified places as the place of occurrence of the external cause; R11.2 Nausea with vomiting, unspecified; T50.8X5A Adverse effect of diagnostic agents, initial encounter
CPT/HCPCS: 36415; 70470; 77280; 77412; 80048; 82040; 84439; 84443; 85025; 96374; 96375; G0378; J1100; J1650; J2405; J3360; J2270; J2765

== ENCOUNTER 2018-11-16 18:31 | Emergency (ER) | payer BC ==
[~2018-11-16] VITALS: Ht 157.5 cm; Wt 74.2 kg
[~2018-11-16 18:31] MED LIST changes: +ACET325T14 PO; +MECL12.52 PO; +PANT40TA5 PO
--- NOTE | 2018-11-16 19:07 | NUR ---
Pt BIB family from home for no BM in 12 days. Pt has been receiving radiation tx, last 2 days ago. Last BM on 11/04. Pt has been taking pain meds, no OTC tx for constipation have helped. Pt states has lost desire to eat last few days.
[2018-11-16 20:30] LABS: BASOPHILS # (AUTO) 0.02 x10^3/uL (0-0.1); BASOPHILS % (AUTO) 0 % (0-1); EOSINOPHILS % (AUTO) 0 % (1-7); LYMPHOCYTES # (AUTO) 0.72 x10^3/uL (1-3.4); LYMPHOCYTES % (AUTO) 8 % (22-44); MD NO; MEAN CORPUSCULAR HEMOGLOBIN 31.2 pg (27.0-34.8); MEAN CORPUSCULAR HGB CONC 32.8 g/dL (32.4-35.8); MEAN PLATELET VOLUME 6.4 fL (7.4-10.4); MONOCYTES # (AUTO) 0.24 x10^3/uL (0.2-0.8); MONOCYTES % (AUTO) 3 % (2-9); NEUTROPHILS # (AUTO) 7.67 x10^3/uL (1.8-6.8); NEUTROPHILS % (AUTO) 89 % (42-75); PLATELET COUNT 216 x10^3/uL (130-400); RED BLOOD COUNT 4.72 x10^6/uL (3.82-5.3); RED CELL DISTRIBUTION WIDTH 15.1 % (9.6-15.2)
--- NOTE | 2018-11-16 20:32 | NUR ---
soap suds enam given
[2018-11-16 20:42] LABS: ALBUMIN 3.4 g/dL (3.4-5.0); ANION GAP 10 mmol/L (5-15); CALCIUM 8.7 mg/dL (8.5-10.1); CHLORIDE 101 mmol/L (98-107); CREATININE 0.66 mg/dL (0.55-1.02)
[2018-11-16 22:01] VITALS: BP 118/72
== END 2018-11-16 22:39 | disposition home or self-care (01) ==
LOC: ED 18:53
DX: K59.00 Constipation, unspecified (principal)
CPT/HCPCS: 36415; 74022; 80048; 82040; 85025; 99284

== ENCOUNTER → 2018-11-26 | Outpatient (CLI) | payer BC ==
[~2018-11-26] MED LIST changes: +GADOBUTROL 10 MMOL/10 ML VIAL ONE
== END | disposition home or self-care (01) ==
LOC: RAD 14:33
PROVIDERS: ATTEND Internal Medicine Hematology & Oncology
DX: C50.412 Malignant neoplasm of upper-outer quadrant of left female breast (principal); C79.31 Secondary malignant neoplasm of brain
CPT/HCPCS: 74183; A9585

== ENCOUNTER 2018-12-01 07:34 | Outpatient (CLI) | payer BC ==
[~2018-12-01 07:34] MED LIST changes: -GADOBUTROL 10 MMOL/10 ML VIAL ONE
== END 2018-12-01 23:59 | disposition home or self-care (01) ==
LOC: ROC 07:34
PROVIDERS: ATTEND Radiology Radiation Oncology
DX: Z02.9 Encounter for administrative examinations, unspecified (principal)

== ENCOUNTER 2018-12-02 10:48 | Emergency (ER) | payer BC ==
[~2018-12-02] VITALS: Ht 157.5 cm; Wt 78.0 kg
[2018-12-02] MEDS ORDERED: FAMOTIDINE 20 MG/2 ML IVP ONE (11:30)
[2018-12-02] MEDS ORDERED: PROMETHAZINE 25 MG/ML, 1ML IM ONE (11:30)
[2018-12-02] MEDS ORDERED: SODIUM CHLORIDE 0.9% 1,000ML IVBOLUS ONE (11:30)
[2018-12-02] MEDS ORDERED: SODIUM CHLORIDE FLUSH 10ML SYR IVF ONE (11:30)
[2018-12-02] MEDS ORDERED: ONDANSETRON ODT 4 MG PO ONE (11:30)
[2018-12-02] MEDS ORDERED: PROMETHAZINE 25 MG/ML, 1ML ONE (11:42)
[2018-12-02 11:43] LABS: MEAN CORPUSCULAR HGB CONC 33.7 g/dL (32.4-35.8); MEAN PLATELET VOLUME 6.3 fL (7.4-10.4); PLATELET COUNT 180 x10^3/uL (130-400); RED BLOOD COUNT 4.73 x10^6/uL (3.82-5.3); RED CELL DISTRIBUTION WIDTH 16.1 % (9.6-15.2)
[2018-12-02] MEDS ORDERED: HYDROmorphone 2 MG/ML, 1ML ONE (11:43)
[2018-12-02] MEDS ORDERED: FAMOTIDINE 20 MG/2 ML ONE (11:43)
[2018-12-02] MEDS: HYDROmorphone 2 MG/ML, 1ML IVPush PRN ×2 (11:50→14:20)
--- NOTE | 2018-12-02 11:51 | NUR ---
PT MEDICATED ORDERED FOR PAIN/NAUSEA. PT RATES PAIN 10/10 AND DESCRIBES A SHARP HEADACHE "BEHIND MY EYES". PT AO X 4. SKIN PWD. RESP EVEN AND EQAUL. 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 PERRLA. SPEECH CLEAR. PT TO CT SCAN VIA [employer]MINDEN AT THIS TIME.
[2018-12-02 12:00] LABS: ALANINE AMINOTRANSFERASE 106 U/L (12-78); ALBUMIN 3.4 g/dL (3.4-5.0); ANION GAP 11 mmol/L (5-15); CALCIUM 8.8 mg/dL (8.5-10.1); CHLORIDE 105 mmol/L (98-107); CREATININE 0.65 mg/dL (0.55-1.02)
[2018-12-02 12:02] LABS: ALKALINE PHOSPHATASE 88 U/L (45-117); BILIRUBIN,TOTAL 1.4 mg/dL (0.2-1.0); TOTAL PROTEIN 6.7 g/dL (6.4-8.2)
--- NOTE | 2018-12-02 12:17 | NUR ---
PT CURRENTLY DOZING ON MARGARITA IN QUIET, DARK ROOM. PT AWAKENS EASILY TO NAME BEING CALLED. PT AWARE THAT WE ARE WAITING FOR LAB/IMAGING RESULTS. CALL LIGHT WITHIN REACH. DAUGHTER AT BEDSIDE. PT ON CONT BP AND O2 MONITORS. CALL LIGHT WITHIN REACH. WILL CONT TO MONITOR PT.
[2018-12-02 12:51] LABS: MD YES
[2018-12-02 12:54] LABS: <PLATELET ESTIMATE> ADEQUATE; <PLT MORPHOLOGY> NORMAL PLT MORPH; <RBC MORPHOLOGY> NORMAL; BAND#(MANUAL) 0.05 x10^3/uL; BANDS%(MANUAL) 1 % (0-7); LYMPH#(MANUAL) 0.78 x10^3/uL (1-3.4); LYMPHS% (MANUAL) 15 % (22-44); MONOS#(MANUAL) 0.26 x10^3/uL (0.3-2.7); MONOS% (MANUAL) 5 % (2-9); SEG#(MANUAL) 4.11 x10^3/uL (1.8-6.8); SEGS% (MANUAL) 79 % (42-75)
--- NOTE | 2018-12-02 13:14 | NUR ---
PT CURRENTLY SLEEPING IN QUIET, DARK ROOM. PT CONT TO DENY PAIN AT THIS TIME. MICHELLE HOWELL AT BEDSIDE FOR RECHECK/EXPLANTION OF RESULTS. PT ON CONT BP, CARDIAC AND O2 MONITORS.
[2018-12-02] MEDS ORDERED: DEXAMETHASONE 4 MG TABLET PO ONE (13:30)
[2018-12-02] MEDS ORDERED: DEXAMETHASONE 4 MG TABLET ONE (13:39)
--- NOTE | 2018-12-02 14:20 | NUR ---
PT C/O THAT PAIN WAS RETURNING, RATED IT 7/10. PT REMEDICATED ORDERED FOR PAIN. PT AND DAUGHTER AWARE THEY WILL BE DISCHARGED AFTER 30 MINUTES OF OBSERVATION. PT AO X 4. SKIN PWD. RESP EVEN AND EQAUL. PT RESTING ON GURNEY IN QUIET, DARK ROOM.
[2018-12-02 14:55] VITALS: BP 114/52
== END 2018-12-02 14:56 | disposition home or self-care (01) ==
LOC: ED 12:49
DX: R51 Headache (principal); R11.2 Nausea with vomiting, unspecified; Z85.3 Personal history of malignant neoplasm of breast
CPT/HCPCS: 36415; 70450; 80053; 85025; 96361; 96372; 96374; 96375; 96376; 99284; J1170; J2550; J3490; J7030

== ENCOUNTER 2018-12-08 07:30 | Outpatient (CLI) | payer BC | END 2018-12-08 23:59 | disposition home or self-care (01) | LOC: ROC 07:30 → EDSTATUS 12-25 17:04 | PROVIDERS: ATTEND Radiology Radiation Oncology | DX: Z02.9 Encounter for administrative examinations, unspecified (principal) ==